=== PATIENT | male | born 1970 | race Caucasian/White ===

== ENCOUNTER 2023-10-26 21:44 | Emergency (ER) | payer BC, SELFPAY ==
[2023-10-26 21:48] VITALS: BP 147/88
--- NOTE | 2023-10-26 23:11 | ED.GENMED ---
Addendum entered and electronically signed by Mario Hernandez DO 10/27/23 03:16:
I did recommend admission for bilateral pulm embolism patient declined, states he wants to go home vital signs are stable, will start on Eliquis, clearly instructed that typically would be admitted for pulmonary embolism, clearly instructed to
return to the ER if he cannot get his medications filled, or he have any worsening symptoms also instructed to follow-up with PCP and pulmonary
Original Note:
History of Present Illness
<ANNA Hunt - Last Filed: 10/27/23 00:50>
General
Chief Complaint: DVT/Possible Blood Clot
Source: patient
Exam Limitations: none
Time Seen by Provider: 10/26/23 22:58
Nursing documentation reviewed up to this point in time: agreed with
Travel History
Have you had any contact with someone who has COVID-19?: No
Do you have any symptoms of coronavirus? Fever > 100 degrees, chills, cough, shortness of breath, sore throat, loss of taste or smell, muscle aches, or headache?: No
History of Present Illness
History of Present Illness:
This is a 53 year old male with a PMH of HLD, who presents to the ED c/o SOB x couple hours. Pt states he noticed his R calf was swollen and tender 3 days ago. with additional left calf swelling. He notes that the pain is worse with ambulation and
present constantly. He states he tried sleeping tonight and felt like he could not catch his breath which is what prompted him to come in tonight. He is concerned of a blood clot because his friend recently had one. He denies any warmth along his
calves. He also denies any fever, chills, CP, pleuritic CP, lightheadedness, dizziness, or cough. He has had some reflux this week, but that is normal for him.
Pt adds that he went on a strenuous hike 6 days ago but denies any trauma or injury. His father has a hx of GBM and had clots as a result of treatment. He states he had a hernia repair April 2023 and denies any complications from the surgery. He is
very active daily and walks around a mile each day. He denies any recent immobilization.
Past History
<ANNA Hunt - Last Filed: 10/27/23 00:50>
Past History
ED Past Medical History: Hypercholesterolemia
ED Past Surgical History: Other (Hernia repair)
Patient has exhibited threatening behavior?: No
Social History
Tobacco: Non-smoker
Alcohol: None
Drug: None
Family History
Family History: Cancer (GBM in father); Negative Diabetes or CAD
Review of Systems
<ANNA Hunt - Last Filed: 10/27/23 00:50>
Review of Systems
Allergies reviewed?: Yes
All Other Systems: ROS reviewed and negative except as documented in HPI and ROS
Constitutional: Reports no symptoms; Denies fever or chills
EENT: Reports no symptoms
Respiratory: Reports trouble breathing; Denies cough
Cardiac: Reports no symptoms; Denies chest pain or palpitations
ABD/GI: Reports no symptoms
: Reports no symptoms
Musculoskeletal: Reports edema and other (right calf pain)
Skin: Reports no symptoms
Neurological: Reports no symptoms; Denies dizzy
Phy Exam
<ANNA Hunt - Last Filed: 10/27/23 00:50>
General Physical Exam
General Presentation: well appearing and no apparent distress
General age: appears stated age
General Skin: warm and dry
General Habitus: normal
General Mental: alert
General Hydration: appears well hydrated
ENT Exam
ENT Exam: normocephalic
Cardiovascular Exam
Cardiovascular Exam: regular rate/rhythm, no murmur and normal peripheral pulses
Heart Sounds: normal
Pulmonary Exam
Pulmonary Exam: lungs clear, no respiratory distress, no crackles, no wheezing and no cough
Oxygen Status: room air
Gastrointestinal Exam
Gastrointestinal Exam: non tender
Neurological Exam
Neurological Exam: alert and oriented x3
Musculoskeletal Exam
Musculoskeletal Exam: full ROM, edema (b/l lower extremity) and other (tenderness to palpation of right lower calf)
Skin Exam
Skin Exam: normal color and warm/dry
Psychiatric Exam
Psychiatric Exam: normal mood/affect
Course
<ST GilbertCO - Last Filed: 10/27/23 00:50>
Orders/Labs/Results
Orders:
Orders
10/26/23 23:44
Electrocardiogram (*1) Stat
Reason for Study: Other
Other Reason for Exam: chest pain
Cardiac Monitoring- Treatment ONCE
EKG- Treatment ONCE
Complete Blood Count/With Diff Urgent
Comprehensive Metabolic Panel Urgent
Magnesium Urgent
NT-proBNP Urgent
Troponin I Urgent
10/27/23 00:00
CT Chest Pe Study Urgent
Reason For Exam: cp leg pain
10/27/23 23:44
US Periph Venous LOWER Ext RT Urgent
Reason For Exam: swelling pain
Abnormal Lab Results
10/27/23
00:04
Abs Immat Gran (auto) 0.1 H 10^3/uL
(0-0.05)
Absolute Monos (auto) 0.9 H 10^3/uL
(0.1-0.6)
Immature Gran % 0.6 H %
(0-0.5)
Monocytes % 11.2 H %
(1.7-9.3)
Glucose 139 H mg/dl
(70-99)
Magnesium 2.4 H mg/dl
(1.6-2.3)
10/27/23 00:04
10/27/23 00:04
Vital Signs
Initial and Last Documented VS:
Initial Vital Signs
Temp Pulse BP Pulse Ox
98.0 F 67 147/88 97
10/26/23 21:48 10/26/23 21:48 10/26/23 21:48 10/26/23 21:48
Last Documented Vital Signs
Temp Pulse BP Pulse Ox
98.0 F 67 147/88 94
10/26/23 21:48 10/26/23 21:48 10/26/23 21:48 10/27/23 00:15
<Mario Hernandez, DO - Last Filed: 10/27/23 02:23>
Orders/Labs/Results
Orders:
Orders
10/26/23 23:44
Electrocardiogram (*1) Stat
Reason for Study: Other
Other Reason for Exam: chest pain
Cardiac Monitoring- Treatment ONCE
EKG- Treatment ONCE
Complete Blood Count/With Diff Urgent
Comprehensive Metabolic Panel Urgent
Magnesium Urgent
NT-proBNP Urgent
Troponin I Urgent
10/27/23 00:00
CT Chest Pe Study Urgent
Reason For Exam: cp leg pain
10/27/23 23:44
US Periph Venous LOWER Ext RT Urgent
Reason For Exam: swelling pain
Abnormal Lab Results
10/27/23
00:04
Abs Immat Gran (auto) 0.1 H 10^3/uL
(0-0.05)
Absolute Monos (auto) 0.9 H 10^3/uL
(0.1-0.6)
Immature Gran % 0.6 H %
(0-0.5)
Monocytes % 11.2 H %
(1.7-9.3)
Glucose 139 H mg/dl
(70-99)
Magnesium 2.4 H mg/dl
(1.6-2.3)
10/27/23 00:04
02/10/24 00:04
Vital Signs
Initial and Last Documented VS:
Initial Vital Signs
Temp Pulse BP Pulse Ox
98.0 F 67 147/88 97
10/26/23 21:48 10/26/23 21:48 10/26/23 21:48 10/26/23 21:48
Last Documented Vital Signs
Temp Pulse BP Pulse Ox
98.0 F 67 147/88 94
10/26/23 21:48 10/26/23 21:48 10/26/23 21:48 10/27/23 00:15
<ANNA Hunt - Last Filed: 10/27/23 00:50>
MDM/Problems Addressed
Differential Diagnosis Includes:
DVT, PE, muscle strain/sprain, claudication, cellulitis, anxiety
<Mario Hernandez DO - Last Filed: 10/27/23 02:23>
*Radiology
Radiology exam reviewed: radiology read reviewed and other (verbal)
*Pulse Oximetry
Patient hypoxic: no
*EKG
Interpretation: abnormal
Comparison EKG: no comparison EKG present
Heart Rate: 78
Rate: normal
Rhythm: sinus
Ischemia: non-specific ST changes
*Executive Vice President And Chief Operating Officer Interpretation
Rate: Executive Vice President And Chief Operating Officer- N/A
*Critical Care Note
Total Time (30-74mins, 75-104mins- exclusive of procedures): 30
<Mario Hernandez DO - Last Filed: 10/27/23 02:23>
Update Note
Update Note:
Reviewed with [facility] bilateral segmental PE
ED Attending Note
<ANNA Hunt - Last Filed: 10/27/23 00:50>
-
Portions of this chart may have been created with voice recognition software.� Occasional wrong word or��sound alike� substitutions may have occurred due to the inherent limitations of voice recognition software.
Discharge Plan
Departure
Patient Disposition: Admit
Date of Disposition: 10/27/23
Time of Disposition: 02:22
Admit to: Telemetry
Presentation/result/management discussed w/ accepting MD/DO: Hospitalist
Patient with high blood pressure during this ER visit?: No
Condition: Fair
Covid-19: Not Applicable
Discharge Problem:
Pulmonary embolism, Peroneal vein clot
Prescriptions:
No Action
simvastatin 40 mg Tablet
40 mg PO HS
acetaminophen [acetaminophen] 325 mg tablet
650 mg PO Q4HPRN PRN (Reason: mild pain) Qty: 1 0RF
ibuprofen 200 mg tablet
400 - 600 mg PO Q6HPRN PRN (Reason: moderate pain) Qty: 1 0RF
oxycodone 5 mg tablet
5 mg PO Q4HPRN PRN (Reason: breakthrough/severe pain) Qty: 10 0RF
Referrals:
NONE,* [Family Provider] -
Interventions
Interventions:
*Risk Screen - Suicide Last Done: 10/26/23 21:55
*General Assessment Last Done: 10/26/23 21:55
*Neglect/Abuse Screening Last Done: 10/26/23 21:55
ED- Fall Risk Assessment Last Done: 10/27/23 00:12
ED- Cardiac Assessment Last Done: 10/27/23 00:12
ED- Pulmonary Assessment Last Done: 10/27/23 00:12
ED-Peripheral Vascular Assessment Last Done: 10/27/23 00:12
ED-Skin Assessment Last Done: 10/27/23 00:12
[2023-10-27 00:36] LABS: % Basophils 0.5 % (0-2); % Eosinophils 1.9 % (0-6); % Immature Granulocytes 0.6 % (0-0.5); % Lymphocytes 39.6 % (20.5-51.1); % Monocytes 11.2 % (1.7-9.3); % Neutrophils 46.2 % (42.2-75.2); Absolute Eosinophils 0.2 10^3/uL (0-0.7); Absolute Immature Granulocytes 0.1 10^3/uL (0-0.05); Absolute Lymphocytes 3.1 10^3/uL (1.2-3.4); Absolute Monocytes 0.9 10^3/uL (0.1-0.6); Absolute Neutrophils 3.7 10^3/uL (1.4-6.5); Hematocrit 48.1 % (39.0-52.0); Mean Corp Hgb Conc. 35.3 g/dL (33.0-37.0); Mean Corpuscular Hgb 28.4 pg (27.0-31.0); Mean Corpuscular Volume 80.4 fL (80.0-94.0); Mean Platelet Volume 9.9 fL (7.4-10.4); Nucleated Red Blood Cells % 0 % (-); Platelet Count 240 10^3/uL (130-400); Red Blood Cell Count 5.98 10^6/uL (4.70-6.10); Red Cell Dist. Width 13.4 % (11.5-14.5); White Blood Cell Count 7.9 10^3/uL (4.8-10.8)
[2023-10-27 00:38] LABS: ALT (SGPT) 42 U/L (0-50); AST (SGOT) 38 U/L (17-59); Albumin 3.9 g/dl (3.5-5.0); Alkaline Phosphatase 69 U/L (38-126); Blood Urea Nitrogen 15 mg/dl (9-20); Calcium 9.6 mg/dl (8.4-10.2); Carbon Dioxide 26 mmol/L (22-30); Chloride 101 mmol/L (98-107); Glucose 139 mg/dl (70-99); Magnesium 2.4 mg/dl (1.6-2.3); Sodium 138 mmol/L (135-145); Total Bilirubin 1.2 mg/dl (0.2-1.3); Total Protein 6.8 g/dl (6.3-8.2); eGFR > 60.00
[2023-10-27 00:49] LABS: NT-proBNP < 20.0 pg/ml; Troponin I < 0.012 ng/ml
--- NOTE | 2023-10-27 02:29 | ED.GENMED ---
History of Present Illness
General
Chief Complaint: DVT/Possible Blood Clot
Time Seen by Provider: 10/26/23 22:58
Travel History
Have you had any contact with someone who has COVID-19?: No
Do you have any symptoms of coronavirus? Fever > 100 degrees, chills, cough, shortness of breath, sore throat, loss of taste or smell, muscle aches, or headache?: No
Past History
Past History
ED Past Medical History: Hypercholesterolemia
ED Past Surgical History: Other (Hernia repair)
Patient has exhibited threatening behavior?: No
Social History
Tobacco: Non-smoker
Alcohol: None
Drug: None
Family History
Family History: Cancer (GBM in father); Negative Diabetes or CAD
Course
Orders/Labs/Results
Orders:
Orders
10/26/23 23:44
Electrocardiogram (*1) Stat
Reason for Study: Other
Other Reason for Exam: chest pain
Cardiac Monitoring- Treatment ONCE
EKG- Treatment ONCE
Complete Blood Count/With Diff Urgent
Comprehensive Metabolic Panel Urgent
Magnesium Urgent
NT-proBNP Urgent
Troponin I Urgent
10/27/23 00:00
CT Chest Pe Study Urgent
Reason For Exam: cp leg pain
10/27/23 02:20
Apixaban [Eliquis] 10 mg PO NOW STA
10/27/23 23:44
US Periph Venous LOWER Ext RT Urgent
Reason For Exam: swelling pain
Abnormal Lab Results
10/27/23
00:04
Abs Immat Gran (auto) 0.1 H 10^3/uL
(0-0.05)
Absolute Monos (auto) 0.9 H 10^3/uL
(0.1-0.6)
Immature Gran % 0.6 H %
(0-0.5)
Monocytes % 11.2 H %
(1.7-9.3)
Glucose 139 H mg/dl
(70-99)
Magnesium 2.4 H mg/dl
(1.6-2.3)
10/27/23 00:04
10/27/23 00:04
Vital Signs
Initial and Last Documented VS:
Initial Vital Signs
Temp Pulse BP Pulse Ox
98.0 F 67 147/88 97
10/26/23 21:48 10/26/23 21:48 10/26/23 21:48 10/26/23 21:48
Last Documented Vital Signs
Temp Pulse BP Pulse Ox
98.0 F 67 147/88 94
10/26/23 21:48 10/26/23 21:48 10/26/23 21:48 10/27/23 00:15
Update Note
Update Note:
2:30 AM update I recommended admission to the patient he has refused states he would like to go home he has PCP [facility] he will follow-up with also him the number for pulmonary, I explained to him that typically he will be admitted
for bilateral pulmonary embolism again he is says he would like to go home
Patient clearly instructed to return to the ER for worsening symptoms or if he has any trouble getting his blood thinners
ED Attending Note
-
Portions of this chart may have been created with voice recognition software.� Occasional wrong word or��sound alike� substitutions may have occurred due to the inherent limitations of voice recognition software.
Discharge Plan
Departure
Patient Disposition: Home (Routine Discharge)
Date of Disposition: 10/27/23
Time of Disposition: 02:22
Admit to: Telemetry
Patient with high blood pressure during this ER visit?: No
Condition: Good
Covid-19: Not Applicable
Discharge Problem:
Pulmonary embolism, Peroneal vein clot
Instructions: Deep vein thrombosis (blood clot in the legs), Pulmonary Embolism (Blood Clot in the Lungs) (DC)
Prescriptions:
New
Eliquis DVT-PE Treat 30D Start 5 mg (74 tabs) tablets,dose pack
See Rx Instructions .ROUTE .COMPLEX Qty: 74 0RF
Rx Instructions:
orally per package directions
10 mg twice a day for 7 days then 5 mg twice a day
No Action
simvastatin 40 mg Tablet
40 mg PO HS
acetaminophen [acetaminophen] 325 mg tablet
650 mg PO Q4HPRN PRN (Reason: mild pain) Qty: 1 0RF
ibuprofen 200 mg tablet
400 - 600 mg PO Q6HPRN PRN (Reason: moderate pain) Qty: 1 0RF
oxycodone 5 mg tablet
5 mg PO Q4HPRN PRN (Reason: breakthrough/severe pain) Qty: 10 0RF
Referrals:
Fantasma Lubin MD [Active] -
NONE,* [Family Provider] -
Esteban Jackson MD [Active] - Next open appointment
Activity Restrictions/Additional Instructions:
Start Eliquis 10 mg twice a day for 7 days then 5 mg twice a day
Call your family doctor tomorrow to arrange follow-up care also call pulmonary to arrange follow-up care
Return to the ER if any trouble breathing chest pain, you have any trouble getting her medications
Interventions
Interventions:
*Risk Screen - Suicide Last Done: 10/26/23 21:55
*General Assessment Last Done: 10/26/23 21:55
*Neglect/Abuse Screening Last Done: 10/26/23 21:55
ED- Fall Risk Assessment Last Done: 10/27/23 00:12
ED- Cardiac Assessment Last Done: 10/27/23 00:12
ED- Pulmonary Assessment Last Done: 10/27/23 00:12
ED-Peripheral Vascular Assessment Last Done: 10/27/23 00:12
ED-Skin Assessment Last Done: 10/27/23 00:12
[2023-10-27] MEDS: ELIQUIS 10 MG PO (02:30)
[2023-10-27 02:42] VITALS: BP 134/74
--- NOTE | 2023-10-27 03:13 | ED.GENMED ---
History of Present Illness
General
Chief Complaint: DVT/Possible Blood Clot
Time Seen by Provider: 10/26/23 22:58
Travel History
Have you had any contact with someone who has COVID-19?: No
Do you have any symptoms of coronavirus? Fever > 100 degrees, chills, cough, shortness of breath, sore throat, loss of taste or smell, muscle aches, or headache?: No
Past History
Past History
ED Past Medical History: Hypercholesterolemia
ED Past Surgical History: Other (Hernia repair)
Patient has exhibited threatening behavior?: No
Social History
Tobacco: Non-smoker
Alcohol: None
Drug: None
Family History
Family History: Cancer (GBM in father); Negative Diabetes or CAD
Course
Orders/Labs/Results
Orders:
Orders
10/26/23 23:44
Electrocardiogram (*1) Stat
Reason for Study: Other
Other Reason for Exam: chest pain
Cardiac Monitoring- Treatment ONCE
EKG- Treatment ONCE
Complete Blood Count/With Diff Urgent
Comprehensive Metabolic Panel Urgent
Magnesium Urgent
NT-proBNP Urgent
Troponin I Urgent
10/27/23 00:00
CT Chest Pe Study Urgent
Reason For Exam: cp leg pain
10/27/23 02:20
Apixaban [Eliquis] 10 mg PO NOW STA
10/27/23 23:44
US Periph Venous LOWER Ext RT Urgent
Reason For Exam: swelling pain
Abnormal Lab Results
10/27/23
00:04
Abs Immat Gran (auto) 0.1 H 10^3/uL
(0-0.05)
Absolute Monos (auto) 0.9 H 10^3/uL
(0.1-0.6)
Immature Gran % 0.6 H %
(0-0.5)
Monocytes % 11.2 H %
(1.7-9.3)
Glucose 139 H mg/dl
(70-99)
Magnesium 2.4 H mg/dl
(1.6-2.3)
10/27/23 00:04
10/27/23 00:04
Vital Signs
Initial and Last Documented VS:
Initial Vital Signs
Temp Pulse BP Pulse Ox
98.0 F 67 147/88 97
10/26/23 21:48 10/26/23 21:48 10/26/23 21:48 10/26/23 21:48
Last Documented Vital Signs
Temp Pulse Resp BP Pulse Ox
98.0 F 62 14 134/74 96
10/26/23 21:48 10/27/23 02:42 10/27/23 02:42 10/27/23 02:42 10/27/23 02:42
Update Note
Update Note:
I did recommend admission for bilateral pulm embolism patient declined, states he wants to go home vital signs are stable, will start on Eliquis, clearly instructed that typically would be admitted for pulmonary embolism, clearly instructed to
return to the ER if he cannot get his medications filled, or he have any worsening symptoms also instructed to follow-up with PCP and pulmonary
ED Attending Note
ED Attending Note
Patient seen and examined by attending physician: Yes
I performed the substantive portion of visit, reviewed & personally made and approve the management plan that is documented in note by myself or [place].: Yes
ED Attending Note:
Seen with student agree with assessment and plan right leg pain with chest pain no history of DVT PE
-
Portions of this chart may have been created with voice recognition software.� Occasional wrong word or��sound alike� substitutions may have occurred due to the inherent limitations of voice recognition software.
Discharge Plan
Departure
Patient Disposition: Home (Routine Discharge)
Date of Disposition: 10/27/23
Time of Disposition: :22
Admit to: Telemetry
Patient with high blood pressure during this ER visit?: No
Condition: Good
Covid-19: Not Applicable
Discharge Problem:
Pulmonary embolism, Peroneal vein clot
Instructions: Deep vein thrombosis (blood clot in the legs), Pulmonary Embolism (Blood Clot in the Lungs) (DC)
Prescriptions:
New
Eliquis DVT-PE Treat 30D Start 5 mg (74 tabs) tablets,dose pack
See Rx Instructions .ROUTE .COMPLEX Qty: 74 0RF
Rx Instructions:
orally per package directions
10 mg twice a day for 7 days then 5 mg twice a day
No Action
simvastatin 40 mg Tablet
40 mg PO HS
acetaminophen [acetaminophen] 325 mg tablet
650 mg PO Q4HPRN PRN (Reason: mild pain) Qty: 1 0RF
ibuprofen 200 mg tablet
400 - 600 mg PO Q6HPRN PRN (Reason: moderate pain) Qty: 1 0RF
oxycodone 5 mg tablet
5 mg PO Q4HPRN PRN (Reason: breakthrough/severe pain) Qty: 10 0RF
Referrals:
Fantasma Lubin MD [Active] -
NONE,* [Family Provider] -
Esteban Jackson MD [Active] - Next open appointment
Activity Restrictions/Additional Instructions:
Start Eliquis 10 mg twice a day for 7 days then 5 mg twice a day
Call your family doctor tomorrow to arrange follow-up care also call pulmonary to arrange follow-up care
Return to the ER if any trouble breathing chest pain, you have any trouble getting her medications
Interventions
Interventions:
*Risk Screen - Suicide Last Done: 10/26/23 21:55
*General Assessment Last Done: 10/26/23 21:55
*Neglect/Abuse Screening Last Done: 10/26/23 21:55
ED- Fall Risk Assessment Last Done: 10/27/23 00:12
*ED COVID-19 Vaccine History Last Done: 10/27/23 02:42
*Nursing Disposition Last Done: 10/27/23 02:42
ED- Cardiac Assessment Last Done: 10/27/23 00:12
ED- Pulmonary Assessment Last Done: 10/27/23 00:12
ED-Peripheral Vascular Assessment Last Done: 10/27/23 00:12
ED-Skin Assessment Last Done: 10/27/23 00:12
Discharge Date and Time
Discharge Date/Time: 10/27/23 02:44
== END 2023-10-27 02:44 | disposition home or self-care (01) ==
LOC: EMR 21:44
PROVIDERS: EMERGENCY PHYSICIAN Emergency Medicine
DX: I26.99 Other pulmonary embolism without acute cor pulmonale (principal); I82.451 Acute embolism and thrombosis of right peroneal vein; M79.661 Pain in right lower leg; E78.00 Pure hypercholesterolemia, unspecified; K21.9 Gastro-esophageal reflux disease without esophagitis
CPT/HCPCS: 99291; 71275; 80053; 83735; 83880; 84484; 85025; 93005; 93971; Q9967

== ENCOUNTER → 2023-12-10 11:53 | Outpatient (REF) | payer BC, SELFPAY | LOC: RAD 11:53 | PROVIDERS: ATTENDING PHYSICIAN Family Medicine | DX: S42.001A Fracture of unspecified part of right clavicle, initial encounter for closed fracture (principal) | CPT/HCPCS: 73000 ==

== ENCOUNTER → 2024-06-05 10:26 | Outpatient (REF) | payer SELFPAY | LOC: HWRAD 10:26 | PROVIDERS: ATTENDING PHYSICIAN Family Medicine | DX: Z13.6 Encounter for screening for cardiovascular disorders (principal) | CPT/HCPCS: 75571 ==

== ENCOUNTER → 2024-07-14 06:58 | Outpatient (REF) | payer OTHER, SELFPAY | LOC: RAD 06:58 | PROVIDERS: ATTENDING PHYSICIAN Internal Medicine Critical Care Medicine; FAMILY PHYSICIAN Family Medicine | DX: Z86.718 Personal history of other venous thrombosis and embolism (principal) | CPT/HCPCS: 93970 ==

== ENCOUNTER 2024-09-03 19:20 | Emergency (ER) | payer OTHER, SELFPAY ==
[2024-09-03 19:36] VITALS: BP 152/95
--- NOTE | 2024-09-03 19:36 | ED.GENMED ---
ED Provider Triage
<Princess Avilez PA-C - Last Filed: 09/03/24 20:30>
-
Patient seen by provider in Triage?: Seen in Triage
Attestation: A medical screening examination has been initiated by a qualified medical provider. Based on the assessment performed at this time, it has been determined that an emergent medical condition may exist and the patient has been informed
that further medical evaluation and possible additional diagnostic testing may be needed.
HPI: 54yoM here with R calf pain that began this morning. Also has 'a little less breath than normal.' Hx of PE in October, was on Eliquis x 6 months, unknown trigger.
GENERAL: Alert , in no apparent distress
EYE: No visual abnormalities.
NECK: Trachea midline
ENT: No visible abnormalities.
LUNGS: No acute respiratory distress
NEUROLOGICAL: Alert and oriented
SKIN: Skin intact. No visible changes.
MUSCULOSKELETAL: Moving extremities normally
PSYCH: Normal and appropriate interaction.
This is a medical evaluation conducted in person to initiate diagnostic evaluation and provide initial therapeutics. Please see further documentation by the treating clinician.
Cardiac labs, D-dimer, EKG, and venous duplex ordered.
History of Present Illness
<Princess Avilez PA-C - Last Filed: 09/03/24 20:30>
General
Chief Complaint: DVT/Possible Blood Clot
Time Seen by Provider: 09/03/24 20:23
<Johana Leonard HOSPICE PLAN ADMINISTRATOR - Last Filed: 09/04/24 01:22>
General
Source: patient
Exam Limitations: none
Nursing documentation reviewed up to this point in time: agreed with
History of Present Illness
History of Present Illness:
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
Today he developed pain in his right calf, denies chest pain or trouble breathing. He states he mentioned chest tightness in triage but he states he thinks it was just anxiety and he has had no more chest symptoms.
Past History
<Princess Avilez PA-C - Last Filed: 09/03/24 20:30>
Past History
ED Past Medical History: Hypercholesterolemia
ED Past Surgical History: Other (Hernia repair)
Patient has exhibited threatening behavior?: No
Social History
Tobacco: Non-smoker
Alcohol: None
Drug: None
Family History
Family History: Cancer (GBM in father); Negative Diabetes or CAD
<Johana Leonard HOSPICE PLAN ADMINISTRATOR - Last Filed: 09/04/24 01:22>
Past History
ED Past Medical History: Other (Pulmonary embolus)
Review of Systems
<Johana Leonard, HOSPICE PLAN ADMINISTRATOR - Last Filed: 09/04/24 01:22>
Review of Systems
Allergies reviewed?: Yes
All Other Systems: ROS reviewed and negative except as documented in HPI and ROS
Constitutional: Denies fever
Respiratory: Denies trouble breathing
Cardiac: Denies chest pain
ABD/GI: Denies abdominal pain or nausea
Musculoskeletal: Reports other (Pain right calf)
Skin: Reports no symptoms
Neurological: Reports no symptoms
Phy Exam
<Johana Leonard HOSPICE PLAN ADMINISTRATOR - Last Filed: 09/04/24 01:22>
Physical Exam
Physical Exam:
GENERAL: No acute distress. A&Ox3.
CONSTITUTIONAL: Afebrile.
EYES: Clear, conjunctivae normal
ENMT: moist mucus membranes, Pharynx nl
RESPIRATORY: Regular respirations, nonlabored, lungs clear.
CARDIOVASCULAR: Regular rate and rhythm, no murmurs, no rubs.
GI: Soft, nontender, normal BS
MUSCULOSKELETAL: Mild tenderness right calf, no swelling or redness. Moves with ease. Well perfused.
SKIN: Warm, dry, pink
PSYCH: Normal mood and affect. Well kept, interactive and appropriate
NEUROLOGIC: Awake, alert and oriented. No focal neurological deficits
Course
<Princess Avilez PA-C - Last Filed: 09/03/24 20:30>
Orders/Labs/Results
Orders:
Orders
09/03/24 19:37
Venous Doppler Lwr Ext Rt [US Periph Venous LOWER Ext RT] Urgent
Comment:
Reason For Exam: R calf pain
09/03/24 19:38
Electrocardiogram (*1) Urgent
Reason for Study: Shortness of Breath
EKG- Treatment ONCE
09/03/24 19:47
Comprehensive Metabolic Panel Urgent
D-Dimer Urgent
NT-proBNP Urgent
Troponin I Urgent
09/03/24 19:51
Complete Blood Count/With Diff Urgent
09/03/24 21:37
Apixaban [Eliquis] 10 mg PO NOW STA
Abnormal Lab Results
09/03/2418
19:47 19:51
Absolute Monos (auto) 0.9 H 10^3/uL
(0.1-0.6)
Monocytes % 9.5 H %
(1.7-9.3)
Glucose 153 H mg/dl
(70-99)
09/03/24 19:51
09/03/24 19:47
Vital Signs
Initial and Last Documented VS:
Initial Vital Signs
Temp Pulse Resp BP Pulse Ox
98.5 F 70 16 152/95 96
09/03/24 19:36 09/03/24 19:36 09/03/24 19:36 09/03/24 19:36 09/03/24 19:36
Last Documented Vital Signs
Temp Pulse Resp BP Pulse Ox
98.5 F 58 18 133/81 95
09/03/24 19:36 09/03/24 21:29 09/03/24 21:29 09/03/24 21:51 09/03/24 21:51
<Johana Leonard NP - Last Filed: 09/04/24 01:22>
Orders/Labs/Results
Orders:
Orders
09/03/24 19:37
Venous Doppler Lwr Ext Rt [US Periph Venous LOWER Ext RT] Urgent
Comment:
Reason For Exam: R calf pain
09/03/24 19:38
Electrocardiogram (*1) Urgent
Reason for Study: Shortness of Breath
EKG- Treatment ONCE
09/03/24 19:47
Comprehensive Metabolic Panel Urgent
D-Dimer Urgent
NT-proBNP Urgent
Troponin I Urgent
09/03/24 19:51
Complete Blood Count/With Diff Urgent
09/03/24 21:37
Apixaban [Eliquis] 10 mg PO NOW STA
Abnormal Lab Results
09/03/2418
19:47 19:51
Absolute Monos (auto) 0.9 H 10^3/uL
(0.1-0.6)
Monocytes % 9.5 H %
(1.7-9.3)
Glucose 153 H mg/dl
(70-99)
09/03/24 19:51
09/03/24 19:47
Vital Signs
Initial and Last Documented VS:
Initial Vital Signs
Temp Pulse Resp BP Pulse Ox
98.5 F 70 16 152/95 96
09/03/24 19:36 09/03/24 19:36 09/03/24 19:36 09/03/24 19:36 09/03/24 19:36
Last Documented Vital Signs
Temp Pulse Resp BP Pulse Ox
98.5 F 58 18 133/81 95
09/03/24 19:36 09/03/24 21:29 09/03/24 21:29 09/03/24 21:51 09/03/24 21:51
<Johana Leonard NP - Last Filed: 09/04/24 01:22>
MDM/Problems Addressed
Differential Diagnosis Includes:
DVT, PE
MDM/Problems Addressed:
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
Today he developed pain in his right calf, denies chest pain or trouble breathing. He states he mentioned chest tightness in triage but he states he thinks it was just anxiety and he has had no more chest symptoms.
EKG sinus bradycardia
CBC normal
CMP normal
Troponin normal
D-dimer within normal limits
BNP normal
US E radiology report read: Occlusive thrombus in the peroneal vein.
No deep venous thrombosis in the more proximal vessels.
Patient to restart his Eliquis. He will follow-up with his PCP
<Johana Leonard NP - Last Filed: 09/04/24 01:22>
*Critical Care Note
Total Time (30-74mins, 75-104mins- exclusive of procedures): Not Applicable
ED Attending Note
<Princess Avilez PA-C - Last Filed: 09/03/24 20:30>
-
Portions of this chart may have been created with voice recognition software.� Occasional wrong word or��sound alike� substitutions may have occurred due to the inherent limitations of voice recognition software.
Discharge Plan
Departure
Patient Disposition: Home (Routine Discharge)
Date of Disposition: 09/03/24
Time of Disposition: 21:43
Patient with high blood pressure during this ER visit?: No
Condition: Good
Discharge Problem:
Acute deep vein thrombosis (DVT) of calf muscle vein of right lower extremity
Instructions: Deep Vein Thrombosis (Blood Clots in the Legs) (DC)
Prescriptions:
New
Eliquis 5 mg tablet
5 mg PO BID Qty: 74 0RF
Rx Instructions:
Take 10 mg BID x 7 days, then 5 mg BID until further instructed
No Action
simvastatin 40 mg Tablet
40 mg PO HS
acetaminophen [acetaminophen] 325 mg tablet
650 mg PO Q4HPRN PRN (Reason: mild pain) Qty: 1 0RF
ibuprofen 200 mg tablet
400 - 600 mg PO Q6HPRN PRN (Reason: moderate pain) Qty: 1 0RF
oxycodone 5 mg tablet
5 mg PO Q4HPRN PRN (Reason: breakthrough/severe pain) Qty: 10 0RF
Eliquis DVT-PE Treat 30D Start 5 mg (74 tabs) tablets,dose pack
See Rx Instructions .ROUTE .COMPLEX Qty: 74 0RF
Rx Instructions:
orally per package directions
10 mg twice a day for 7 days then 5 mg twice a day
Referrals:
Al Watts, DO [Family Provider] - Tomorrow
Activity Restrictions/Additional Instructions:
As we discussed, I sent a prescription to your pharmacy for the Eliquis. 10 mg twice a day for 7 days and then 5 mg twice a day until further instructed by your primary doctor.
Return here immediately for chest pain, trouble breathing or feeling sicker in any way
Interventions
Interventions:
*Risk Screen - Suicide Last Done: 09/03/24 19:36
*Neglect/Abuse Screening Last Done: 09/03/24 19:36
*Nursing Disposition Last Done: 09/03/24 21:56
ED- Cardiac Assessment Last Done: 09/03/24 21:29
ED- Pulmonary Assessment Last Done: 09/03/24 21:29
ED-Peripheral Vascular Assessment Last Done: 09/03/24 21:29
Discharge Date and Time
Discharge Date/Time: 09/03/24 21:56
Print Language: CROATIAN
[2024-09-03 19:59] LABS: % Basophils 0.8 % (0-2); % Eosinophils 1.5 % (0-6); % Immature Granulocytes 0.2 % (0-0.5); % Lymphocytes 36.6 % (20.5-51.1); % Monocytes 9.5 % (1.7-9.3); % Neutrophils 51.4 % (42.2-75.2); Absolute Basophils 0.1 10^3/uL (0-0.2); Absolute Eosinophils 0.1 10^3/uL (0-0.7); Absolute Lymphocytes 3.4 10^3/uL (1.2-3.4); Absolute Monocytes 0.9 10^3/uL (0.1-0.6); Absolute Neutrophils 4.8 10^3/uL (1.4-6.5); Hematocrit 51.8 % (39.0-52.0); Hemoglobin 17.4 g/dL (13.0-18.0); Mean Corp Hgb Conc. 33.6 g/dL (33.0-37.0); Mean Corpuscular Hgb 29.2 pg (27.0-31.0); Mean Corpuscular Volume 87.1 fL (80.0-94.0); Mean Platelet Volume 9.9 fL (7.4-10.4); Nucleated Red Blood Cells % 0 % (-); Platelet Count 244 10^3/uL (130-400); Red Blood Cell Count 5.95 10^6/uL (4.70-6.10); Red Cell Dist. Width 13.3 % (11.5-14.5); White Blood Cell Count 9.3 10^3/uL (4.8-10.8)
[2024-09-03 20:10] LABS: D-Dimer < 0.27 ug/mlFEU (0.00-0.50)
[2024-09-03 20:19] LABS: ALT (SGPT) 49 U/L (0-50); AST (SGOT) 50 U/L (17-59); Albumin 4.8 g/dl (3.5-5.0); Alkaline Phosphatase 57 U/L (38-126); Blood Urea Nitrogen 18 mg/dl (9-20); Calcium 9.3 mg/dl (8.4-10.2); Carbon Dioxide 25 mmol/L (22-30); Chloride 101 mmol/L (98-107); Glucose 153 mg/dl (70-99); Potassium 3.8 mmol/L (3.5-5.1); Sodium 137 mmol/L (135-145); Total Bilirubin 1.3 mg/dl (0.2-1.3); Total Protein 7.7 g/dl (6.3-8.2); eGFR > 60.00
[2024-09-03 20:20] LABS: NT-proBNP < 20.0 pg/ml; Troponin I < 0.012 ng/ml
[2024-09-03 21:26] VITALS: BP 142/91
[2024-09-03 21:29] VITALS: BP 142/91
[2024-09-03] MEDS: ELIQUIS 10 MG PO (21:50)
[2024-09-03 21:51] VITALS: BP 133/81
== END 2024-09-03 21:56 | disposition home or self-care (01) ==
LOC: EMR 19:20
PROVIDERS: Physician Assistant; EMERGENCY PHYSICIAN Student in an Organized Health Care Education/Training Program; FAMILY PHYSICIAN Family Medicine
DX: I82.461 Acute embolism and thrombosis of right calf muscular vein (principal); Z86.711 Personal history of pulmonary embolism; E78.00 Pure hypercholesterolemia, unspecified
CPT/HCPCS: 99284; 80053; 83880; 84484; 85025; 85379; 93005; 93971

== ENCOUNTER 2024-09-05 10:54 | Emergency (ER) | payer OTHER, SELFPAY ==
[2024-09-05 11:06] VITALS: BP 141/94
[2024-09-05 11:24] LABS: % Basophils 0.8 % (0-2); % Eosinophils 1.5 % (0-6); % Immature Granulocytes 0.3 % (0-0.5); % Lymphocytes 33.1 % (20.5-51.1); % Monocytes 10.9 % (1.7-9.3); % Neutrophils 53.4 % (42.2-75.2); Absolute Basophils 0.1 10^3/uL (0-0.2); Absolute Eosinophils 0.1 10^3/uL (0-0.7); Absolute Lymphocytes 2.4 10^3/uL (1.2-3.4); Absolute Monocytes 0.8 10^3/uL (0.1-0.6); Absolute Neutrophils 3.8 10^3/uL (1.4-6.5); Hematocrit 55.2 % (39.0-52.0); Hemoglobin 18.4 g/dL (13.0-18.0); Mean Corp Hgb Conc. 33.3 g/dL (33.0-37.0); Mean Platelet Volume 10.1 fL (7.4-10.4); Nucleated Red Blood Cells % 0 % (-); Platelet Count 278 10^3/uL (130-400); Red Blood Cell Count 6.13 10^6/uL (4.70-6.10); Red Cell Dist. Width 13.4 % (11.5-14.5); White Blood Cell Count 7.1 10^3/uL (4.8-10.8)
[2024-09-05 11:41] LABS: ALT (SGPT) 64 U/L (0-50); AST (SGOT) 54 U/L (17-59); Albumin 5.2 g/dl (3.5-5.0); Alkaline Phosphatase 54 U/L (38-126); Blood Urea Nitrogen 13 mg/dl (9-20); Calcium 10.1 mg/dl (8.4-10.2); Carbon Dioxide 31 mmol/L (22-30); Chloride 101 mmol/L (98-107); Glucose 106 mg/dl (70-99); Potassium 5.9 mmol/L (3.5-5.1); Sodium 141 mmol/L (135-145); Total Protein 8.2 g/dl (6.3-8.2); eGFR > 60.00
[2024-09-05 11:50] LABS: Troponin I < 0.012 ng/ml
[2024-09-05 12:16] VITALS: BP 118/89
[2024-09-05 12:20] VITALS: BMI 30.6
--- NOTE | 2024-09-05 12:20 | EDRN ---
Pt states he arrives for chest pain that started in his R chest then went to substernal area. Pt has a R lower leg blood clot and is on Eliquis since his visit to ER on Sunday. pt now has no pain. pt also stated that he had done a greater number
of pushups than usual.
[2024-09-05 13:00] VITALS: BP 116/84
--- NOTE | 2024-09-05 13:22 | ED.GENMED ---
History of Present Illness
General
Chief Complaint: Chest Pain
Time Seen by Provider: 09/05/24 12:38
History of Present Illness
History of Present Illness:
54-year-old male presents to the emergency department for evaluation of transient episode of chest pain that occurred today. He is concerned about a pulmonary embolism as he was recently diagnosed with DVT. He has been compliant with his Eliquis
but did not take his a.m. dose. No shortness of breath. Has no chest pain at present. Currently feels well.
Past History
Past History
ED Past Medical History: Hypercholesterolemia and Other (Pulmonary embolus)
ED Past Surgical History: Other (Hernia repair)
Patient has exhibited threatening behavior?: No
Social History
Tobacco: Non-smoker
Alcohol: None
Drug: None
Family History
Family History: Cancer (GBM in father); Negative Diabetes or CAD
Review of Systems
Review of Systems
Allergies reviewed?: Yes
All Other Systems: ROS reviewed and negative except as documented in HPI and ROS
Phy Exam
Physical Exam
Physical Exam:
GEN: Well appearing, NAD, WDWN
HEENT: Oral mucosa moist, no scleral icterus
Cardiac: Regular rate and rhythm, no murmurs
Lung: No respiratory distress, no tachypnea, lungs clear to auscultation bilaterally
MSK: No gross deformity or injuries
Skin: Good color, no pallor or jaundice, no rashes
Neuro: AO x3, moves all extremities freely
Psych: Calm, cooperative
Scores
Heart Score for Chest Pain Patients
STEMI patient?: Not applicable
Course
Orders/Labs/Results
Orders:
Orders
09/05/24 10:57
Electrocardiogram (*1) Urgent
Reason for Study: Chest Pain
EKG- Treatment ONCE
09/05/24 11:13
Complete Blood Count/With Diff Urgent
Comprehensive Metabolic Panel Urgent
Troponin I Urgent
09/05/24 13:21
Furosemide [Lasix] 10 mg PO NOW STA
Abnormal Lab Results
09/05/24
11:13
RBC 6.13 H 10^6/uL
(4.70-6.10)
Hgb 18.4 H g/dL
(13.0-18.0)
Hct 55.2 H %
(39.0-52.0)
Absolute Monos (auto) 0.8 H 10^3/uL
(0.1-0.6)
Monocytes % 10.9 H %
(1.7-9.3)
Potassium 5.9 H D mmol/L
(3.5-5.1)
Carbon Dioxide 31 H mmol/L
(22-30)
Glucose 106 H mg/dl
(70-99)
Total Bilirubin 2.0 H mg/dl
(0.2-1.3)
ALT 64 H U/L
(0-50)
Albumin 5.2 H g/dl
(3.5-5.0)
09/05/24 11:13
09/05/24 11:13
Vital Signs
Initial and Last Documented VS:
Initial Vital Signs
Temp Pulse Resp BP Pulse Ox
98.1 F 50 16 141/94 98
09/05/24 11:06 09/05/24 11:06 09/05/24 11:06 09/05/24 11:06 09/05/24 11:06
Last Documented Vital Signs
Temp Pulse Resp BP Pulse Ox
98.1 F 47 20 116/84 98
09/05/24 11:06 09/05/24 13:37 09/05/24 13:15 09/05/24 13:37 09/05/24 13:15
MDM/Problems Addressed
MDM/Problems Addressed:
Exam is unremarkable and the patient has no continued chest pain. Given that his vital signs are stable even if he did have a small pulmonary embolism related to the recent DVT there would be no alteration of treatment as he is hemodynamically
stable. Ultimately though his DVT was quite distal thus I have a low clinical suspicion for acute PE. Interestingly he was noted to have elevated potassium compared to labs from 2 days before. Unclear reasoning for this, single dose of Lasix
given and recommend BMP follow-up within the next 3 to 5 days
*Critical Care Note
Total Time (30-74mins, 75-104mins- exclusive of procedures): Not Applicable
ED Attending Note
-
Portions of this chart may have been created with voice recognition software.� Occasional wrong word or��sound alike� substitutions may have occurred due to the inherent limitations of voice recognition software.
Discharge Plan
Departure
Patient Disposition: Home (Routine Discharge)
Date of Disposition: 09/05/24
Time of Disposition: 13:22
Patient with high blood pressure during this ER visit?: No
Discharge Problem:
Atypical chest pain, Acute hyperkalemia
Instructions: Hyperkalemia
Prescriptions:
No Action
simvastatin 40 mg Tablet
40 mg PO HS
acetaminophen [acetaminophen] 325 mg tablet
650 mg PO Q4HPRN PRN (Reason: mild pain) Qty: 1 0RF
ibuprofen 200 mg tablet
400 - 600 mg PO Q6HPRN PRN (Reason: moderate pain) Qty: 1 0RF
oxycodone 5 mg tablet
5 mg PO Q4HPRN PRN (Reason: breakthrough/severe pain) Qty: 10 0RF
Eliquis DVT-PE Treat 30D Start 5 mg (74 tabs) tablets,dose pack
See Rx Instructions .ROUTE .COMPLEX Qty: 74 0RF
Rx Instructions:
orally per package directions
10 mg twice a day for 7 days then 5 mg twice a day
Eliquis 5 mg tablet
5 mg PO BID Qty: 74 0RF
Rx Instructions:
Take 10 mg BID x 7 days, then 5 mg BID until further instructed
Referrals:
Al Watts, DO [Family Provider] -
Activity Restrictions/Additional Instructions:
Increase your fluids, try for approximately 100 oz of fluid per day
Have your potassium levels repeated at the outpatient lab on Sunday
Interventions
Interventions:
*Risk Screen - Suicide Last Done: 09/05/24 11:06
*General Assessment Last Done: 09/05/24 12:20
*Neglect/Abuse Screening Last Done: 09/05/24 11:06
ED- Fall Risk Assessment Last Done: 09/05/24 12:20
*ED COVID-19 Vaccine History Last Done: 09/05/24 12:20
*Nursing Disposition Last Done: 09/05/24 13:40
ED- Cardiac Assessment Last Done: 09/05/24 12:20
Discharge Date and Time
Discharge Date/Time: 09/05/24 13:40
Print Language: MOLDOVAN
[2024-09-05] MEDS: LASIX 10 MG PO (13:37)
== END 2024-09-05 13:40 | disposition home or self-care (01) ==
LOC: EMR 10:54
PROVIDERS: Emergency Medicine; EMERGENCY PHYSICIAN Student in an Organized Health Care Education/Training Program; FAMILY PHYSICIAN Family Medicine
DX: R07.89 Other chest pain (principal); E87.5 Hyperkalemia; Z86.711 Personal history of pulmonary embolism
CPT/HCPCS: 99284; 80053; 84484; 85025; 93005

== ENCOUNTER 2025-04-13 06:26 | Day surgery (SDC) | payer OTHER, SELFPAY | END 2025-04-13 12:24 | disposition home or self-care (01) | LOC: GI 06:26 | PROVIDERS: ATTENDING PHYSICIAN Internal Medicine Gastroenterology; FAMILY PHYSICIAN Family Medicine | DX: Z12.11 Encounter for screening for malignant neoplasm of colon (principal); D12.2 Benign neoplasm of ascending colon; K57.30 Diverticulosis of large intestine without perforation or abscess without bleeding | CPT/HCPCS: 45385; 45380; 88305 ==